=== PATIENT | male | born 1955 ===

== ENCOUNTER → 2021-11-10 11:00 | Outpatient (BNVA) | payer MEDICARE, BC, SELFPAY | PROVIDERS: PCP Family Medicine; Visit Provider Registered Nurse Diabetes Educator | DX: E11.9 Type 2 diabetes mellitus without complications (principal); I10 Essential (primary) hypertension; Z71.89 Other specified counseling; Z71.3 Dietary counseling and surveillance | CPT/HCPCS: 99211 ==